=== PATIENT | male | born 1955 | race Caucasian/White ===

== ENCOUNTER 2020-12-15 03:31 | Emergency (ER) | payer OTHER ==
[~2020-12-15] VITALS: Ht 182.9 cm; Wt 113.4 kg
[2020-12-15] MEDS ORDERED: TRAMADOL 50 MG50 MG PO (04:36)
[2020-12-15] MEDS ORDERED: HYDROCODON-ACE1 EAC7 PO (04:37)
[2020-12-15 06:35] VITALS: BP 174/108
== END 2020-12-15 06:36 | disposition home or self-care (01) ==
LOC: ER 03:31
DX: S76.911A Strain of unspecified muscles, fascia and tendons at thigh level, right thigh, initial encounter (principal); R22.41 Localized swelling, mass and lump, right lower limb; X58.XXXA Exposure to other specified factors, initial encounter; Y93.89 Activity, other specified; Y92.89 Other specified places as the place of occurrence of the external cause; Y99.8 Other external cause status